=== PATIENT | male | born 1985 | race African-American/Black ===

== ENCOUNTER 2018-07-29 09:57 | Emergency (ER) | payer MEDICAID ==
[~2018-07-29] VITALS: Ht 185.4 cm; Wt 83.0 kg
[2018-07-29 10:14] VITALS: BP 138/81
== END 2018-07-29 10:26 | disposition left against medical advice (07) ==
LOC: ER 09:57
DX: F41.9 Anxiety disorder, unspecified (principal); F32.9 Major depressive disorder, single episode, unspecified; F20.9 Schizophrenia, unspecified; Z76.0 Encounter for issue of repeat prescription